=== PATIENT | male | born 1985 | race Caucasian/White ===

== ENCOUNTER 2017-05-07 16:15 | Emergency (ER) | payer SELFPAY ==
[~2017-05-07] VITALS: Ht 180.3 cm; Wt 65.9 kg
[~2017-05-07 16:15] MED LIST: FLAGYL500 MG PO; NORCO 325 MG-51 TAB PO; PEN-VEE K500 MG PO
[2017-05-07 16:17] VITALS: BP 118/66; TEMP 98
[2017-05-07] MEDS ORDERED: CEPHALEXIN500 M1 PO (17:11)
[2017-05-07 17:13] VITALS: PULSE 60
== END 2017-05-07 17:18 | disposition home or self-care (01) ==
LOC: COL.ER 16:15
DX: S61.012A Laceration without foreign body of left thumb without damage to nail, initial encounter (principal); W26.0XXA Contact with knife, initial encounter; Y92.009 Unspecified place in unspecified non-institutional (private) residence as the place of occurrence of the external cause